=== PATIENT | male | born 1990 | race Caucasian/White ===

== ENCOUNTER 2016-06-30 22:00 | Emergency (ER) | payer SELFPAY ==
--- NOTE | 2016-07-01 19:22 | ER ---
ADMIT: 06/30/2016 RM/LOC: ER [facility] MR#: [id number] [place], [place] [id number] DEEPTI PERES [address] [place] [address] Emergency Room Report SEX: M AGE: 25 : 1990 DATE: 06/30/2016 HISTORY OF PRESENT ILLNESS: The patient is a 25-year-old patient who presents to the emergency room complaining of laceration to the back of the head. He tried to reach for his fan light switch, missed, and went straight back hitting against a piece of furniture. He has a laceration that is about 2.5 cm in length in the back of his head. No loss of consciousness. Repair done with luke, four of them in place. Instructions given for staple followup. CLINICAL IMPRESSION: Laceration to scalp secondary to fall. PADMINI Kim / Zafar Olivares MD / modl JOB #: [id number] CC: Zafar Olivares MD, Attending Physician Mihaela Alexander MD, Family Physician
== END 2016-06-30 22:50 | disposition home or self-care (01) ==
LOC: ER 22:00
PROC: 0HQ0XZZ Repair Scalp Skin, External Approach (ICD-10-PCS; principal; 2016-06-30)
DX: S01.01XA Laceration without foreign body of scalp, initial encounter (principal); W17.89XA Other fall from one level to another, initial encounter; Y92.009 Unspecified place in unspecified non-institutional (private) residence as the place of occurrence of the external cause